=== PATIENT | female | born 1965 | race Caucasian/White ===

== ENCOUNTER 2022-03-30 19:00 | Outpatient (CLI) | payer BC | END 2022-03-30 19:01 | disposition home or self-care (01) | LOC: SLEEPLAB 19:00 | PROVIDERS: ATTEND Internal Medicine Critical Care Medicine | DX: G47.33 Obstructive sleep apnea (adult) (pediatric) (principal); G47.10 Hypersomnia, unspecified; E66.9 Obesity, unspecified; I49.3 Ventricular premature depolarization | CPT/HCPCS: 95811 ==